=== PATIENT | female | born 1955 | race Caucasian/White ===

== ENCOUNTER 2025-05-23 06:18 | Day surgery (SDC) | payer MEDICARE, OTHER, SELFPAY | END 2025-05-23 08:38 | disposition home or self-care (01) | LOC: GI 06:18 | PROVIDERS: ATTENDING PHYSICIAN Internal Medicine Gastroenterology; FAMILY PHYSICIAN Surgery | DX: Z12.11 Encounter for screening for malignant neoplasm of colon (principal); Q43.8 Other specified congenital malformations of intestine; K62.89 Other specified diseases of anus and rectum | CPT/HCPCS: G0121 ==